=== PATIENT | female | born 1985 | race Hispanic/Latino ===

== ENCOUNTER 2017-11-27 18:22 | Inpatient (IN) | payer MEDICAID ==
[~2017-11-27] VITALS: Ht 170.2 cm; Wt 100.2 kg
[2017-11-27] MEDS ORDERED: LACTATED RINGERS 1000ML 1,000 ML IV PRN (19:48)
[2017-11-27 20:13] LABS: APPEARANCE,URINE CLOUDY (CLEAR); BILIRUBIN,URINE NEGATIVE (NEGATIVE); COLOR,URINE YELLOW (YELLOW); GLUCOSE, URINE (UA) NEGATIVE (NEGATIVE); KETONES,URINE 15 mg/dL (NEGATIVE); LEUKOCYTE ESTERASE ,URINE MODERATE (NEGATIVE); NITRATE,URINE NEGATIVE (NEGATIVE); OCCULT BLOOD,URINE TRACE-INTACT (NEGATIVE); PROTEIN,URINE NEGATIVE (NEGATIVE); UROBILINOGEN,URINE 0.2 mg/dL (0.2-1.0)
[2017-11-27] MEDS ORDERED: LACTATED RINGERS 1000ML 1,000 ML IV ONE (20:32)
[2017-11-27] MEDS ORDERED: LACTATED RINGERS 1000ML 1,000 ML IV SCH (21:00)
[2017-11-27 21:05] LABS: BACTERIA,URINE Few /HPF (None Seen); MUCUS,URINE Rare LPF (None Seen); SQUAMOUS EPITHELIAL CELL,UR Few /LPF (0-2); TRICHOMONAS,URINE Rare /LPF (None Seen)
[2017-11-27 21:08] LABS: AMPHET/METH SCREEN,URINE NEGATIVE (NEGATIVE); BARBITURATE SCREEN, URINE NEGATIVE (NEGATIVE); BENZODIAZEPINES SCREEN,URINE NEGATIVE (NEGATIVE); CANNABINOID SCREEN,URINE POSITIVE (NEGATIVE); COCAINE SCREEN,URINE NEGATIVE (NEGATIVE); OPIATE SCREEN,URINE NEGATIVE (NEGATIVE); PHENCYCLIDINE SCREEN,URINE NEGATIVE (NEGATIVE)
[2017-11-27 21:09] LABS: HEMATOCRIT 33.6 % (36-48); MEAN CORPUSCULAR HEMOGLOBIN 28.4 pg (27.0-33.0); MEAN CORPUSCULAR HGB CONC 33.9 g/dL (32.0-36.0); MEAN CORPUSCULAR VOLUME 83.8 fL (79-99); PLATELET COUNT (AUTO) 230 K/uL (130-400); RED BLOOD CELL COUNT(AUTO) 4.01 MIL/uL (4.00-5.50); RED CELL DISTRIBUTION WIDTH 13.9 % (11.0-15.5); WHITE BLOOD COUNT (AUTO) 9.4 K/uL (4.8-10.8)
[2017-11-28] MEDS ORDERED: LACTATED RINGERS 1000ML 1,000 ML IV ONE (01:42)
[2017-11-28] MEDS ORDERED: OXYTOCIN 10 USP UNITS/ML ONE ×2 (01:42→14:06)
[2017-11-28] MEDS ORDERED: OXYTOCIN 10 USP UNITS/ML 20 UNIT in LACTATED RINGERS 1000ML 1,000 ML IV SCH (03:00)
[2017-11-28] MEDS ORDERED: MEPERIDINE-PF 50 MG/ML SYG IM ONE (09:12)
[2017-11-28] MEDS: PROMETHAZINE HCL 25 MG/ML 1ML AMPULE IM SCH (09:22)
[2017-11-28] MEDS: MEPERIDINE-PF 50 MG/ML SYG IVP SCH (09:22)
[2017-11-28] MEDS ORDERED: BENZOCAINE/LANOLIN/ALOE VERA 60 ML AEROSOL TP PRN (14:30)
[2017-11-28] MEDS ORDERED: DIPH,PERTUSS(ACELL),TET VAC/PF 0.5 ML VIAL IM PRN (14:30)
[2017-11-28] MEDS ORDERED: ACETAMINOPHEN-CODEINE 300/30MG TAB PO PRN (14:30)
[2017-11-28] MEDS ORDERED: WITCH HAZEL 1 PAD TP PRN (14:30)
[2017-11-28] MEDS ORDERED: MEASLES/MUMPS/RUBELLA VACCINE, LIVE 0.5 ML/VIAL SQ PRN (14:30)
[2017-11-28] MEDS ORDERED: HYDROCODONE/ACETAMINOPHEN 5/325 MG TAB PO PRN (14:30)
[2017-11-28] MEDS ORDERED: ACETAMINOPHEN 325 MG TAB PO PRN (14:30)
[2017-11-28] MEDS ORDERED: LANOLIN 30GM OINTMENT TP PRN (14:30)
[2017-11-28 14:46] VITALS: BP 127/73
[2017-11-28 16:28] VITALS: BP 125/70
[2017-11-28] MEDS: IBUPROFEN 800 MG TAB PO PRN (18:30)
[2017-11-28 19:25] VITALS: BP 122/67
[2017-11-28] MEDS: DOCUSATE SODIUM 100 MG CAP PO SCH (21:09)
[2017-11-28 23:16] VITALS: BP 102/57
[2017-11-29 03:35] VITALS: BP 94/54
[2017-11-29] MEDS: IBUPROFEN 800 MG TAB PO PRN ×2 (03:44→16:07)
[2017-11-29 05:37] LABS: HEMATOCRIT 29.3 % (36-48); MEAN CORPUSCULAR HEMOGLOBIN 28.6 pg (27.0-33.0); MEAN CORPUSCULAR HGB CONC 33.7 g/dL (32.0-36.0); MEAN CORPUSCULAR VOLUME 84.8 fL (79-99); NUCLEATED RED BLOOD CELLS 0.1 % (0.0-0.19); PLATELET COUNT (AUTO) 203 K/uL (130-400); RED BLOOD CELL COUNT(AUTO) 3.46 MIL/uL (4.00-5.50); RED CELL DISTRIBUTION WIDTH 13.8 % (11.0-15.5); WHITE BLOOD COUNT (AUTO) 12.1 K/uL (4.8-10.8)
[2017-11-29 07:24] VITALS: BP 95/52
[2017-11-29 08:25] LABS: HEPATITIS Bs ANTIGEN SCREEN P Negative (Negative)
[2017-11-29] MEDS: MEPERIDINE-PF 50 MG/ML SYG IVP SCH (08:47)
[2017-11-29] MEDS: PROMETHAZINE HCL 25 MG/ML 1ML AMPULE IM SCH (08:48)
[2017-11-29] MEDS: DOCUSATE SODIUM 100 MG CAP PO SCH (08:48)
[2017-11-29 11:50] VITALS: BP 120/65
[2017-11-29 15:24] VITALS: BP 131/79
== END 2017-11-29 18:15 | disposition home or self-care (01) | DRG 560 ==
LOC: LDH 19:23 → WSH 11-28 14:45
PROVIDERS: ADMIT Obstetrics & Gynecology; ATTEND Obstetrics & Gynecology
PROC: 0HQ9XZZ Repair Perineum Skin, External Approach (ICD-10-PCS; principal; 2017-11-28)
PROC: 10E0XZZ Delivery of Products of Conception, External Approach (ICD-10-PCS; 2017-11-28)
PROC: 10907ZC Drainage of Amniotic Fluid, Therapeutic from Products of Conception, Via Natural or Artificial Opening (ICD-10-PCS; 2017-11-28)
DX: O99.324 Drug use complicating childbirth (principal); D64.9 Anemia, unspecified; F12.20 Cannabis dependence, uncomplicated; O99.02 Anemia complicating childbirth; O70.0 First degree perineal laceration during delivery; O69.1XX0 Labor and delivery complicated by cord around neck, with compression, not applicable or unspecified; Z3A.39 39 weeks gestation of pregnancy; Z37.0 Single live birth; Z28.21 Immunization not carried out because of patient refusal
CPT/HCPCS: 36415; 80305; 81001; 85027; 86592; 86850; 86900; 86901; 87340; J2175; J2590; J7120